=== PATIENT | male | born 1995 | race Caucasian/White ===

== ENCOUNTER 2016-07-10 16:04 | Inpatient (IN) | payer OTHER ==
[~2016-07-10] VITALS: Ht 180.3 cm; Wt 88.5 kg
[2016-07-10 16:14] VITALS: BP 153/94; PULSE 98; RESP 18; O2SAT 97
--- NOTE | 2016-07-10 16:39 | ED.REPORT ---
HPI-Psychiatric Illness Date of Service Jul 10, 2016 ED Provider: El Caraballo MD Patient is a 20 year old male with a history of depression and prior suicide attempt who presents to the ED, accompanied by his parents, after he threatened to commit suicide by shooting himself this afternoon. His parents returned home this evening to find the patient with a gun to his head, planning to commit suicide. The gun belonged to his friend and is now back in the friend's possession. The patient admits to ongoing suicidality on arrival to the ED. Patient reports being depressed for two reasons. First, he found out that his girlfriend was cheating on him several weeks ago. The following week his best friend committed suicide. He states that he has "been trying to stay alive" and that he simply hopes that he will feel happier the next day. However he continues to feel depressed. The patient was previously seen by a psychiatrist, but has not been in some time. He is not currently on any psychiatric medications. In the past the patient tried to overdose of methamphetamines and was admitted to the pediatric psych facility in [place]. Patient admits to using large amounts of Xanax and Cocaine to deal with his emotions. He took 12 Xanax tablets within the last 24 hours, 4x Xanax at 1am last night, additional 4x at 7am, and then 4x at 8am. Nursing Notes Stated Complaint: SUICIDAL THOUGHT Chief Complaint: Psychiatric Complaint Nursing Notes Reviewed: Yes Allergies: Coded Allergies: No Known Allergies (Unverified , 07/10/16) General Time Seen by MD: 16:26 Chief Complaint Depressed, Suicidal ideation Hx Obtained From: Patient Arrived By: Walk-in Onset Occurred: Just prior to arrival (ongoing depression for several weeks) Symptom Duration: Since onset Recent Healthcare: No recent doctor visit, No recent hospitalization Similar Sx Previous: Yes Risk-Psychiatric Illness Suicide Risk Stratification Suicide Risk Factors - Adult: : Close associate suicide: Previous attempt: Prior psych admission: Substance abuse RF Statements: Risk factors reviewed Past Medical History Past Medical History depression with prior overdose attempt multiple concussions due to football and wrestling, told not to continue playing sports due to severity of his symptoms Past Surgical History none reported Smoking History Unknown if Ever Smoker Social History Drug Use: Cocaine, Xanax Other Social History: Good social support, Local resident Ambulatory Status Independent Review of Systems Constitutional: Denies: Chills, Fever Psychiatric: Reports: Depression, Suicidal ideation Complete sys rev & neg: except as marked. Physical Exam Initial Vital Signs Vital Signs (First) Date Time Temp Pulse Resp B/P Pulse Ox O2 Delivery O2 Flow Rate FiO2 07/10/16 16:14 36.8 98 18 153/94 97 Room Air Initial VS: Reviewed Head / Eyes: Atraumatic, Normocephalic, PERRL ENT: Conjunctiva normal, No scleral icterus Neck: Supple, Full range of motion Respiratory: Breath sounds normal, Clear to auscultation, No respiratory distress Cardiovascular: Regular rate & rhythm, Heart sounds normal Abdomen / GI: Soft, Non-tender Extremities: Vascular intact, Neuro intact, No swelling Skin: Warm, Dry, No cyanosis General/Constitutional: Awake, Alert Behavior: Positive: Tearful Neurologic: Oriented X3, Speech NL, No motor deficits, No sensory deficits Psychiatric: No hallucinations (not responding to internal stimuli) Abnormal Mood/Affect: Positive: Depressed Abnormal Thinking / Perception: Positive: Suicidal, with plan linear, organized Interpretation & Diagnostics Interpretation & Diagnostics: Urine Tox Dip: Positive for Benzodiazepines, Cocaine, and Marijuana Lab Results Interpretation Result Diagram: 07/10/16 1806 07/10/16 1806 Test 07/10/16 17:00 07/10/16 18:06 Hold Urine Received (Received) White Blood Count 10.4th/mm3 (3.8-10.1) Red Blood Count 5.73mil/mm3 (4.40-5.80) Hemoglobin 16.0g/dL (13.8-17.2) Hematocrit 47.1% (41.0-50.0) Mean Corpuscular Volume 82.2fL (81-100) Mean Corpuscular Hemoglobin 27.9pg (27.0-35.0) Mean Corpuscular Hemoglobin Concent 34.0% (32.0-37.0) Red Cell Distribution Width 14.4% (12.3-15.4) Platelet Count 235bil/L (150-400) Neutrophils (%) (Auto) 67.7% (40-74) Lymphocytes (%) (Auto) 21.5% (14-46) Monocytes (%) (Auto) 9.3% (4-12) Eosinophils (%) (Auto) 0.4% (0-5) Basophils (%) (Auto) 0.3% (0-3) Sodium Level 140mEq/L (134-144) Potassium Level 4.6mEq/L (3.5-5.2) Chloride Level 102mEq/L (97-108) Carbon Dioxide Level 22mmol/L (18-29) Blood Urea Nitrogen 9mg/dL (6-20) Creatinine 1.01mg/dL (0.76-1.27) Estimat Glomerular Filtration Rate 101mL/min (>59) Glucose Level 98mg/dL (60-99) Calcium Level 10.0mg/dL (8.5-10.1) Total Bilirubin 0.3mg/dL (0.0-1.2) Aspartate Amino Transf (AST/SGOT) 38U/L (0-50) Alanine Aminotransferase (ALT/SGPT) 81U/L (0-44) Alkaline Phosphatase 65U/L (25-150) Total Protein 7.4g/dL (6.4-8.4) Albumin 4.5g/dL (3.4-5.0) Thyroid Stimulating Hormone (TSH) 1.710uIU/mL (0.450-4.500) Hold Souza Top Tube Received (Received) Salicylates Level < 3.0ug/mL (30-250) Acetaminophen Level < 15.0ug/mL Rx (10-25) Re-Eval/Medical Decision Med Decision/Clinical Course In summary, the patient is a 20-year-old male with past medical history significant for depression and polysubstance abuse, who presents with suicidal ideation after being found by his parents holding a loaded firearm to his head. After initial history and physical exam, I placed the patient on suicide precautions. I contacted our social science instructor who interviewed the patient as well and agreed with the plan. The patient at this time desires voluntary admission and is accompanied by his parents who are supportive and appropriate at the bedside. We considered medical etiologies of the patient's symptoms including metabolic and toxicologic and none were found in our history, physical exam or lab workup. There was no indication of significant trauma on exam. No neurologic defecits to suggest BOXER OPERATOR mass. I obtained labs including CBC, CMP and UA to eval for organic disease. These tests were negative. I also obtained a serum ETOH level and UDS. Alcohol was negative and drug screen was positive for benzos, cocaine and marijuana all of which the patient admits to using. Of note he admits to attempting to overdose earlier today on Xanax however he is well beyond 8 hours past his last benzodiazepine ingestion without any evidence of significant toxicity or respiratory depression. Patient presents with exacerbation of their underlying depression as a result of social stressors. At this point, the patient's words/actions suggest that they are at extreme risk for self harm. Thus we elected to admit to psychiatry for magagement of their depression and suicidality. Firearm is now in possession of the sports teacher and the patient will not have access to firearms. He is been accepted to [facility] on the psychiatry service however there will not be able to accept him until tomorrow morning. He will be signed out to the oncoming physician. The patient remained comfortable and hemodynamically stable throughout their ED course. Source of Hx: Old records Re-Evaluation/Progress : Time of Eval: 21:50 Re-Evaluation/Progress Note: Rechecked the patient. Discussed the plan laid out by the MATHEMATICS PROFESSOR, with morning transfer to [facility]. Patient states that he is doing alright and that he is "still alive". Consultation #1: Consulted With: garden worker Call Returned at: 17:29 Milieu Coordinator: Will see patient Note: Spoke with the ED social science instructor about the patient. He will evaluate the patient and coordinate hospital admission. Consultation #2: Consulted With: garden worker Call Returned at: 19:41 Note: Spoke with KELLEE Avery, about the patient's case. [facility] has beds available and would be able to take the patient. Dr. Forrest states that he the patient would be a good fit for their facility. However, do due his recent drug use they would like to have the patient observed overnight. He can be transferred to their facility in the morning. Counseled Regarding: Diagnosis, Lab results, Need for transfer Discharge & Departure Shift Change Sign-Out Patient Care Transferred: Yes Discussed Complaint(s): Yes Additonal Information: Awaiting transfer in the morning Impression: Primary Impression: Suicidal ideations Additional Impressions: Depression Depression Type: major depressive disorder Major depression recurrence: recurrent Active/Remission status: currently active Major depression episode severity: moderate Qualified Code: F33.1 - Major depressive disorder, recurrent, moderate Polysubstance abuse Benzodiazepine overdose Encounter type: initial encounter Injury intent: undetermined intent Qualified Code: T42.4X4A - Poisoning by benzodiazepines, undetermined, initial encounter Acute situational disturbance Care Transferred to: Dr. Rendon Care Transferred at: 03:00 Scribe Attestation Portions of this note were transcribed by Kathi Hernandez. I, Dr. Caraballo personally performed the history, physical exam and medical decision-making; I reviewed and confirmed the accuracy of the information in the transcribed note. Signed by: Angelina Henderson, 07/10/2016 2338 El Caraballo MD Jul 10, 2016 16:39 Kathi Hernandez Jul 10, 2016 17:25
[2016-07-10 17:15] VITALS: BP 136/78; PULSE 99; RESP 14; O2SAT 99
[2016-07-10 18:18] LABS: BASOPHILS % (AUTO) 0.3 % (0-3); EOSINOPHILS % (AUTO) 0.4 % (0-5); MONOCYTES % (AUTO) 9.3 % (4-12); Mean Corpuscular Hemoglobin 27.9 pg (27.0-35.0); Mean Corpuscular Volume 82.2 fL (81-100); NEUTROPHILS % (AUTO) 67.7 % (40-74); Platelet Count 235 bil/L (150-400)
[2016-07-11 03:00] VITALS: BP 125/84; PULSE 90; RESP 16
[2016-07-11 07:33] VITALS: BP 120/66; PULSE 89; RESP 16; O2SAT 100
[2016-07-11] MEDS ORDERED: Alum-Mag Hydrox-Simeth 30 mL Suspension PO PRN (09:25)
[2016-07-11] MEDS ORDERED: Benzocaine-Menthol Lozenge 2/Pkg PO PRN (09:25)
[2016-07-11] MEDS ORDERED: Magnesium Hydroxide 10 mL Oral Concentration PO PRN (09:25)
[2016-07-11] MEDS ORDERED: hydrOXYzine Pamoate 25 mg Capsule PO PRN (09:25)
[2016-07-11] MEDS ORDERED: LORazepam 2 mg Tablet PO ONE (10:35)
--- NOTE | 2016-07-11 15:07 | NUR ---
Nursing Note Admission S/O: Pt admitted on a voluntary basis from [facility] ED. Pt brought in by his parents after threatening to commit suicide. Parents later found returned home & found him with a gun to his head. Pt has a hx of having 7 concussions d/t football & wrestling. He has a past history of alvino admitted to [facility] in [place] after a suicide attempt. Pt reports he uses 6-8 gm of THC daily & Xanax that he has not been prescribed. Pt rates his depression & anxiety at a "12" on a scale of 1-10/10 the worst. He reports suicidal ideation "all the time....I hate my life." Pt had self-harming behavior in middle school. VS stable. Pt saw Dr. Reyes until 2 years ago. He currently has no psychiatrist or dependency case manager. Pt began sobbing during admission process. Pt reports he can not agree to stay safe on unit, but will advise staff if he feels like he will harm himself. A: Pt is suicidal & unsure if he can keep himself safe. P: Provide supportive environment. Monitor medications & effects.
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
[2016-07-11] MEDS ORDERED: TRAZ150T72 PO (22:35)
[2016-07-11] MEDS ORDERED: DIVA250T12 PO (22:35)
[2016-07-11] MEDS ORDERED: METH10CP PO (22:35)
[2016-07-11] MEDS ORDERED: BUPR150T12 PO (22:35)
[2016-07-11] MEDS ORDERED: HYDR-656 PO (22:35)
[2016-07-11] MEDS ORDERED: RISP1TAB3 PO (22:35)
--- NOTE | 2016-07-11 23:10 | NUR ---
Nurses Note Evening Patient has been quiet and on the periphery of the unit. He admitted to anxiety about the adult psychiatric unit but responded to support. His affect remained sad and constricted with a depressed mood. He contracted for safety. Patient brightened with the visit from 2 friends. He was compliant with Zyprexa 10mg and requested Vistaril 50mg stating he sleeps poorly. Will maintain q 15min checks for safety and support. Addendum: 07/11/16 at 6156 by RIGOBERTO RAMSEY RN Amended: Links added.
--- NOTE | 2016-07-12 04:12 | NUR ---
nursing, nights, 11-7 s/o- has appeared to sleep after midnight during q 15 minute assessments. a- no apparent distress. p- monitor behavior/emotional state, quality, times and amount of sleep, use and effect of medication. leann Addendum: 07/12/16 at 0507 by RENEE LOERA RN Medications Mother brought in all of patients empty medication bottles. Medications entered into Med Rec. All Rx bottles last filled in 2014.
--- NOTE | 2016-07-12 06:49 | NUR ---
OBSERVATIONS 1900 TO 0700 Pt was generally pleasant, however, believes that he is too young to be here. Pt questioned some of the unit rules (i.e. no visitors under 18). Pt appears depressed, unable to rate mood. Appeared to have a positive visit with friends and positive phone conversation with girlfriend. Pt reported asleep at 0000 and slept through the night. Maintained Q15 safety checks as directed.
[2016-07-12 09:05] VITALS: BP 145/89; PULSE 91; RESP 16
--- NOTE | 2016-07-12 11:45 | NUR ---
Nursing: Day shift: O: Pt has been in his room all morning. He came to the open unit for breakfast briefly. States he is bored as he lies on his bed. Denies any distress.
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
--- NOTE | 2016-07-12 12:45 | PCM.DIMED ---
Discharge Instructions Date of Service Jul 12, 2016 Dates of Hospitalization Jul 11, 2016 at 13:31 Discharge Diagnosis Discharge Diagnosis Major Depression Recurrent severe Polysusbstance Use DO including cocaine, THC, and benzos PTSD chronic Diet No restrictions Activity No restrictions Moustapha Tierney DO Jul 12, 2016 12:45
[2016-07-12] MEDS ORDERED: OLAN10TA3 PO (12:48)
[2016-07-12] MEDS ORDERED: HYDR50CA PO (12:48)
--- NOTE | 2016-07-12 17:37 | NUR ---
DISCHARGE NOTE Pt. discharged from unit at 17:10 accompanied by his mother, Barbara, with the plan to have her transport him via car to . His V/S were stable, he endorsed passive suicidal ideation but endorsed no plan or intent and stated he could remain safe during transport to another hospital. Pt. was futuristic and expressed motivation for treatment at [place].
--- NOTE | 2016-07-12 20:26 | NUR ---
Counseling/Laundry Laborer: S/O: Patient slept 5 hours of sleep last night per staff. He reports thoughts of hurting himself, but contracts for safety. He denies H/I. He denies auditory and visual hallucinations. Patient was discharged and was admitted to [facility]. A: Patient is cooperative, hopeful, seeking help. P: Follow care plan, coordinate out-patient providers.
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
== END 2016-07-12 17:10 | disposition home or self-care (01) | DRG 885 ==
LOC: SED 16:04 → MHC 07-11 13:31
PROVIDERS: ADMIT Psychiatry & Neurology Psychiatry; ATTEND Psychiatry & Neurology Psychiatry
DX: F33.9 Major depressive disorder, recurrent, unspecified (principal); R45.851 Suicidal ideations; F43.0 Acute stress reaction; F14.10 Cocaine abuse, uncomplicated; F12.10 Cannabis abuse, uncomplicated; F43.10 Post-traumatic stress disorder, unspecified; F19.10 Other psychoactive substance abuse, uncomplicated; Z72.89 Other problems related to lifestyle